=== PATIENT | female | born 1995 | race Two or more races ===

== ENCOUNTER 2024-04-06 10:06 | Observation (INO) | payer OTHER ==
[2024-04-06] MEDS ORDERED: ASPI1TAB20 PO (11:42)
[2024-04-06] MEDS ORDERED: PREN-96 PO (11:42)
== END 2024-04-06 11:58 | disposition home or self-care (01) ==
LOC: LDRP 10:06
PROVIDERS: ADMIT Obstetrics & Gynecology; ATTEND Obstetrics & Gynecology
DX: O24.419 Gestational diabetes mellitus in pregnancy, unspecified control (principal); Z3A.31 31 weeks gestation of pregnancy; Z87.891 Personal history of nicotine dependence
CPT/HCPCS: 59025; 76818; 81002; 82948; 82962; 94760; G0378

== ENCOUNTER 2024-04-14 11:07 | Observation (INO) | payer OTHER ==
[~2024-04-14 11:07] MED LIST: ASPI1TAB20 PO; PREN-96 PO
== END 2024-04-14 12:47 | disposition home or self-care (01) ==
LOC: LDRP 11:07
PROVIDERS: ADMIT Obstetrics & Gynecology; ATTEND Obstetrics & Gynecology
DX: O24.419 Gestational diabetes mellitus in pregnancy, unspecified control (principal); Z3A.33 33 weeks gestation of pregnancy; Z79.899 Other long term (current) drug therapy; Z98.890 Other specified postprocedural states
CPT/HCPCS: 59025; 76818; 81002; 82948; 82962; 94760; G0378

== ENCOUNTER 2024-04-21 11:00 | Observation (INO) | payer OTHER ==
[2024-04-21] MEDS ORDERED: METF-370 PO (12:25)
[2024-04-21] MEDS ORDERED: GLYB2.5T8 PO (12:25)
--- NOTE | 2024-04-21 13:39 | DVHDS2 ---
Physician Discharge Progress N Final Diagnosis: gdm Operations or Procedures: Operations or Procedures nst,sono Condition on Discharge: Good Disposition: Home Discharge Instructions: Diet: Consistent carbohydrate Activity: Light activity Medications: na Follow Up Care: Specialist: 3d Discharge Statement: "Patient was advised to return to the ER or call 911 if any headaches, dizziness, shortness of breath, chest pain, abdominal pain, bleeding, fevers, or worsening of medical condition. Patient was counseled about treatment plan, medications, possible side effects, patientverbalized understanding. All questions were answered to the best of my ability. This discharge took greater then 30 minutes in planning, reviewing documentation, counseling the patient, and discussing with other team members." JENS DOVE DO Apr 21, 2024 13:39
--- NOTE | 2024-04-21 13:53 | DVH ---
BIOPHYSICAL PROFILE HISTORY: GDMA1 TECHNIQUE: Multiple transabdominal real-time grayscale sonographic images through the gravid uterus of the fetus with duplex Doppler color flow and M-mode spectral analysis FINDINGS: BIOPHYSICAL PROFILE: breathing score: 2 movement score: 2 tone score: 2 Quantitative ALBERT score: 2 (ALBERT: 11 Cm.) Total score: 8/8 The cervix is not seen Single live fetus in cephalic presentation. heart rate 132 beats per minute. Anterior placenta without previa or abruption Biophysical profile score 8/8 corresponding to an RAYNA of 06/02 IMPRESSION: Biophysical profile score: 8/8
== END 2024-04-21 13:49 | disposition home or self-care (01) ==
LOC: LDRP 11:00
PROVIDERS: ADMIT Obstetrics & Gynecology; ATTEND Obstetrics & Gynecology
DX: O24.419 Gestational diabetes mellitus in pregnancy, unspecified control (principal); Z3A.34 34 weeks gestation of pregnancy; Z79.899 Other long term (current) drug therapy; Z98.890 Other specified postprocedural states
CPT/HCPCS: 59025; 76818; 81002; 82948; 82962; 94760; G0378

== ENCOUNTER 2024-04-24 10:37 | Observation (INO) | payer OTHER ==
[~2024-04-24 10:37] MED LIST changes: +GLYB2.5T8 PO; +METF-370 PO
--- NOTE | 2024-04-24 11:30 | DVH ---
BIOPHYSICAL PROFILE HISTORY: GDMA2 Comparison Study: 04/21/2024 TECHNIQUE: Multiple real-time grayscale sonographic images through the gravid uterus of the fetus wi th duplex Doppler color flow and M-mode spectral analysis FINDINGS: BIOPHYSICAL PROFILE: breathing score: 2 movement score: 2 tone score: 2 Quantitative ALBERT score: 2 (ALBERT: 11.7 Cm.) Total score: 8/8 The cervix is not seen Single live fetus in vertex presentation. heart rate 146 beats per minute. Anterior location of placenta without previa or abruption Biophysical profile score 8/8 corresponding to an RAYNA of 06/02/2024 IMPRESSION: 1. Biophysical profile score: 8/8
--- NOTE | 2024-04-24 13:52 | DVHDS2 ---
Physician Discharge Progress N Final Diagnosis: GDM Operations or Procedures: Operations or Procedures NST,SONO Condition on Discharge: Good Disposition: Home Discharge Instructions: Diet: Consistent carbohydrate Activity: No Restrictions, As Tolerated Medications: NA Follow Up Care: Specialist: 2D Discharge Statement: "Patient was advised to return to the ER or call 911 if any headaches, dizziness, shortness of breath, chest pain, abdominal pain, bleeding, fevers, or worsening of medical condition. Patient was counseled about treatment plan, medications, possible side effects, patientverbalized understanding. All questions were answered to the best of my ability. This discharge took greater then 30 minutes in planning, reviewing documentation, counseling the patient, and discussing with other team members." JENS DOVE DO Apr 24, 2024 13:52
== END 2024-04-24 12:15 | disposition home or self-care (01) ==
LOC: LDRP 10:37
PROVIDERS: ADMIT Obstetrics & Gynecology; ATTEND Obstetrics & Gynecology
DX: O24.419 Gestational diabetes mellitus in pregnancy, unspecified control (principal); O76 Abnormality in fetal heart rate and rhythm complicating labor and delivery; Z3A.34 34 weeks gestation of pregnancy; Z79.899 Other long term (current) drug therapy
CPT/HCPCS: 59025; 76818; 81002; 82948; 82962; 94760; G0378

== ENCOUNTER 2024-04-28 11:56 | Observation (INO) | payer OTHER ==
--- NOTE | 2024-04-28 12:39 | DVH ---
BIOPHYSICAL PROFILE HISTORY: GDMA2 TECHNIQUE: Multiple transabdominal real-time grayscale sonographic images through the gravid uterus of the fetus with duplex Doppler color flow and M-mode spectral analysis FINDINGS: BIOPHYSICAL PROFILE: breathing score: 2 movement score: 2 tone score: 2 Quantitative ALBERT score: 2 (ALBERT: 12.1 Cm.) Total score: 8 The cervix not well visualized. Single live fetus in cephalic presentation. heart rate 158 beats per minute. Anterior placenta without previa or abruption IMPRESSION: Biophysical profile score: 8
--- NOTE | 2024-05-04 13:16 | DVHDS2 ---
Physician Discharge Progress N Final Diagnosis: gdm Operations or Procedures: Operations or Procedures nst,sono Condition on Discharge: Good Disposition: Home Discharge Instructions: Diet: Regular Activity: No Restrictions, As Tolerated Follow Up/Referral: Eat small frequent meals. [facility] and 05/05 at 12:00pm for NST/BPP Medications: na Follow Up Care: Specialist: 2d Discharge Statement: "Patient was advised to return to the ER or call 911 if any headaches, dizziness, shortness of breath, chest pain, abdominal pain, bleeding, fevers, or worsening of medical condition. Patient was counseled about treatment plan, medications, possible side effects, patientverbalized understanding. All questions were answered to the best of my ability. This discharge took greater then 30 minutes in planning, reviewing documentation, counseling the patient, and discussing with other team members." JENS DOVE DO May 04, 2024 13:16
== END 2024-04-28 13:38 | disposition home or self-care (01) ==
LOC: UNDOADMOB 11:56 → LDRP 11:56
PROVIDERS: ADMIT Obstetrics & Gynecology; ATTEND Obstetrics & Gynecology
DX: O26.893 Other specified pregnancy related conditions, third trimester (principal); R51.9 Headache, unspecified; O24.419 Gestational diabetes mellitus in pregnancy, unspecified control; Z87.891 Personal history of nicotine dependence
CPT/HCPCS: 59025; 76818; 81002; 82948; 82962; 94760; G0378

== ENCOUNTER 2024-05-01 15:43 | Observation (INO) | payer OTHER ==
--- NOTE | 2024-05-02 18:34 | DVH ---
BIOPHYSICAL PROFILE HISTORY: GDMA2 TECHNIQUE: Multiple transabdominal real-time grayscale sonographic images through the gravid uterus of the fetus with duplex Doppler color flow and M-mode spectral analysis FINDINGS: BIOPHYSICAL PROFILE: breathing score: 2 movement score: 2 tone score: 2 Quantitative ALBERT score: 2 (ALBERT: 10.6 Cm.) Total score: 8/8 The cervix not measured Single live fetus in cephalic presentation. heart rate 141 beats per minute. Grade 2 placenta without previa or abruption, placenta is anterior Biophysical profile score 8/8 corresponding to an RAYNA of 06/02/2024 IMPRESSION: 1. Biophysical profile score: 8/8
--- NOTE | 2024-05-03 05:18 | DVHDS2 ---
Physician Discharge Progress N Final Diagnosis: GDMA2 Operations or Procedures: Operations or Procedures NST/BPP/ALBERT accuchclaribel, all WNL Commentary: Commentary BPP 01/21 NST reactive Condition on Discharge: Stable Disposition: Home Discharge Instructions: Diet: Consistent carbohydrate Activity: No Restrictions, As Tolerated Follow Up/Referral: as scheduled 2x wk/NST BPP Medications: No new meds Follow Up Care: Discharge Statement: "Patient was advised to return to the ER or call 911 if any headaches, dizziness, shortness of breath, chest pain, abdominal pain, bleeding, fevers, or worsening of medical condition. Patient was counseled about treatment plan, medications, possible side effects, patientverbalized understanding. All questions were answered to the best of my ability. This discharge took greater then 30 minutes in planning, reviewing documentation, counseling the patient, and discussing with other team members." CHARLES DOWNING DO May 03, 2024 05:18
== END 2024-05-02 19:27 | disposition home or self-care (01) ==
LOC: LDRP 05-02 18:00
PROVIDERS: ADMIT Obstetrics & Gynecology; ATTEND Obstetrics & Gynecology
DX: O24.419 Gestational diabetes mellitus in pregnancy, unspecified control (principal); Z3A.35 35 weeks gestation of pregnancy; Z87.891 Personal history of nicotine dependence
CPT/HCPCS: 59025; 76818; 81002; 82948; 82962; 94760; G0378

== ENCOUNTER 2024-05-05 10:19 | Observation (INO) | payer OTHER ==
--- NOTE | 2024-05-05 12:48 | DVH ---
BIOPHYSICAL PROFILE HISTORY: gdma2 TECHNIQUE: Multiple transabdominal real-time grayscale sonographic images through the gravid uterus of the fetus with duplex Doppler color flow and M-mode spectral analysis FINDINGS: BIOPHYSICAL PROFILE: breathing score: 2 movement score: 2 tone score: 2 Quantitative ALBERT score: 2 (ALBERT: 10.5 Cm.) Total score: 8 The cervix not well visualized. Single live fetus in cephalic presentation. heart rate 144 beats per minute. Anterior placenta without previa or abruption IMPRESSION: Biophysical profile score: 8
--- NOTE | 2024-05-05 13:12 | DVHDS2 ---
Physician Discharge Progress N Final Diagnosis: gdm Operations or Procedures: Operations or Procedures nst,sono Condition on Discharge: Good Disposition: Home Discharge Instructions: Diet: Consistent carbohydrate Activity: No Restrictions, As Tolerated Medications: na Follow Up Care: Specialist: 3d Discharge Statement: "Patient was advised to return to the ER or call 911 if any headaches, dizziness, shortness of breath, chest pain, abdominal pain, bleeding, fevers, or worsening of medical condition. Patient was counseled about treatment plan, medications, possible side effects, patientverbalized understanding. All questions were answered to the best of my ability. This discharge took greater then 30 minutes in planning, reviewing documentation, counseling the patient, and discussing with other team members." JENS DOVE DO May 05, 2024 13:12
== END 2024-05-05 13:33 | disposition home or self-care (01) ==
LOC: LDRP 11:46 → UNDOADMOB 11:46 → LDRP 12:05 → UNDODISOB 13:33
PROVIDERS: ADMIT Obstetrics & Gynecology; ATTEND Obstetrics & Gynecology
DX: O24.419 Gestational diabetes mellitus in pregnancy, unspecified control (principal); Z3A.36 36 weeks gestation of pregnancy; Z87.891 Personal history of nicotine dependence
CPT/HCPCS: 59025; 76818; 81002; 82948; 82962; 94760; G0378

== ENCOUNTER 2024-05-08 15:53 | Observation (INO) | payer OTHER ==
--- NOTE | 2024-05-08 16:44 | DVH ---
BIOPHYSICAL PROFILE HISTORY: gdma2 TECHNIQUE: Multiple transabdominal real-time grayscale sonographic images through the gravid uterus of the fetus with duplex Doppler color flow and M-mode spectral analysis FINDINGS: BIOPHYSICAL PROFILE: breathing score: 2 movement score: 2 tone score: 2 Quantitative ALBERT score: 2 (ALBERT: 9.7 Cm.) Total score: 8/8 The cervix is not seen. Single live fetus in cephalic presentation. heart rate 160 beats per minute. Anterior placenta without previa or abruption Biophysical profile score 8/8 corresponding to an RAYNA of 06/02/24 IMPRESSION: Biophysical profile score: 8/8
--- NOTE | 2024-05-09 10:09 | DVHDS2 ---
Obstetrics Discharge Summary Obstetrics Discharge Summary Date of Admission: May 08, 2024 Date of Discharge: May 08, 2024 Reason For Admission: Observational/Evaluation ( Status), Others (GDM A2 NST BPP) Procedures: NST, Ultrasound Discharge Diagnosis: Others (Reassuring heart tones) Discharge Information: Activity (Unrestricted), Diet (GDM diet), Medications (Continue home meds), Instructions (Kick counts labor precautions), Discharge to (Home), Discarge date (04/07/2024) SRAVANI LANDEROS DO May 09, 2024 10:09
== END 2024-05-08 17:12 | disposition home or self-care (01) ==
LOC: LDRP 15:53
PROVIDERS: ADMIT Obstetrics & Gynecology; ATTEND Obstetrics & Gynecology
DX: O24.419 Gestational diabetes mellitus in pregnancy, unspecified control (principal); Z3A.36 36 weeks gestation of pregnancy; Z87.891 Personal history of nicotine dependence; Z79.899 Other long term (current) drug therapy
CPT/HCPCS: 59025; 76818; 81002; 82948; 82962; 94760; G0378

== ENCOUNTER 2024-05-11 13:18 | Observation (INO) | payer OTHER ==
--- NOTE | 2024-05-11 16:23 | DVH ---
BIOPHYSICAL PROFILE HISTORY: GDMA2/NUCHAL TECHNIQUE: Multiple transabdominal real-time grayscale sonographic images through the gravid uterus of the fetus with duplex Doppler color flow and M-mode spectral analysis FINDINGS: BIOPHYSICAL PROFILE: breathing score: 2 movement score: 2 tone score: 2 Quantitative ALBERT score: 2 (ALBERT: 12.0 Cm.) Total score: 8/8 Single live fetus in cephalic presentation. heart rate 160 beats per minute. Anterior placenta without previa or abruption IMPRESSION: 1. Biophysical profile score: 8/8 HS:Y
--- NOTE | 2024-05-11 22:06 | DVHDS2 ---
Physician Discharge Progress N Final Diagnosis: testing for GDM, A2 Operations or Procedures: Operations or Procedures 28yo IUP@36.6wks VSS UA wnl NST reactive (verified by 2 RNs) BPP wnl FKC/PTL precautions reviewed. Condition on Discharge: Stable Disposition: Home Discharge Instructions: Diet: Consistent carbohydrate Activity: No Restrictions, As Tolerated Medications: see med list Follow Up Care: Specialist: f/u twice weekly Discharge Statement: "Patient was advised to return to the ER or call 911 if any headaches, dizziness, shortness of breath, chest pain, abdominal pain, bleeding, fevers, or worsening of medical condition. Patient was counseled about treatment plan, medications, possible side effects, patientverbalized understanding. All questions were answered to the best of my ability. This discharge took greater then 30 minutes in planning, reviewing documentation, counseling the patient, and discussing with other team members." SOLOMON ROJAS CNM May 11, 2024 22:06
== END 2024-05-11 17:26 | disposition home or self-care (01) ==
LOC: LDRP 15:30 → UNDOADMOB 15:30 → LDRP 15:39 → UNDODISOB 17:26
PROVIDERS: ADMIT Obstetrics & Gynecology; ATTEND Obstetrics & Gynecology
CPT/HCPCS: 59025 ×2; 76818 ×2; 81002 ×2; 82948 ×2; 82962 ×2; 94760 ×2; G0378

== ENCOUNTER 2024-05-15 04:34 | Observation (INO) | payer OTHER ==
--- NOTE | 2024-05-15 12:37 | DVH ---
CLINICAL HISTORY: Gestational diabetes. COMPARISON: US BIOPHYSICAL PROFILE on DOS: 05/11/24, US BIOPHYSICAL PROFILE on DOS: 05/08/24, US BIOP HYSICAL PROFILE on DOS: 05/05/24 TECHNIQUE: biophysical profile was performed. Transabdominal sonographic images of the fetus we re obtained. FINDINGS: The fetus is in cephalic position. heart rate measures 156 BPM. Amniotic fluid index measures 12.4 cm. The placenta is anterior in position. BPP profile is an overall score of 8/8, with 2/2 points for breathing, with at least one episode of breathing over a 30 second duration during a 30 minute observation, 2/2 points for m ovements, with 3 or more discrete body or limb movements, 2/2 points for tone, with one or more episodes of extremity extension with return to flexion, or opening and closing of hand, and 2/ 2 points for amniotic fluid, with at least 1 pocket of amniotic fluid that measures 2 cm in 2 perpend icular planes. IMPRESSION: BPP score of 8/8.
--- NOTE | 2024-05-15 19:02 | DVHDS2 ---
Physician Discharge Progress N Final Diagnosis: gdm Operations or Procedures: Operations or Procedures nst,sono Condition on Discharge: Good Disposition: Home Discharge Instructions: Diet: Consistent carbohydrate Activity: No Restrictions, As Tolerated Medications: na Follow Up Care: Specialist: 2d Discharge Statement: "Patient was advised to return to the ER or call 911 if any headaches, dizziness, shortness of breath, chest pain, abdominal pain, bleeding, fevers, or worsening of medical condition. Patient was counseled about treatment plan, medications, possible side effects, patientverbalized understanding. All questions were answered to the best of my ability. This discharge took greater then 30 minutes in planning, reviewing documentation, counseling the patient, and discussing with other team members." JENS DOVE DO May 15, 2024 19:02
== END 2024-05-15 12:25 | disposition home or self-care (01) ==
LOC: LDRP 10:55
PROVIDERS: ADMIT Obstetrics & Gynecology; ATTEND Obstetrics & Gynecology
DX: O24.419 Gestational diabetes mellitus in pregnancy, unspecified control (principal); Z3A.37 37 weeks gestation of pregnancy; Z98.890 Other specified postprocedural states; Z79.899 Other long term (current) drug therapy
CPT/HCPCS: 59025; 76818; 81002; 82948; 82962; 94760; G0378

== ENCOUNTER 2024-05-18 12:55 | Observation (INO) | payer OTHER ==
--- NOTE | 2024-05-18 14:06 | DVH ---
BIOPHYSICAL PROFILE HISTORY: GDMA2 Comparison: 05/15/2024 TECHNIQUE: Multiple transabdominal real-time grayscale sonographic images through the gravid uterus of the fetus with duplex Doppler color flow and M-mode spectral analysis FINDINGS: BIOPHYSICAL PROFILE: breathing score: 2 movement score: 2 tone score: 2 Quantitative ALBERT score: 2 (ALBERT: 14.8 Cm.) Total score: 8 The cervix is not well-visualized Single live fetus in cephalic presentation. heart rate 147 beats per minute. Anterior placenta . IMPRESSION: Biophysical profile score: 8
--- NOTE | 2024-05-18 14:36 | DVHDS2 ---
Physician Discharge Progress N Final Diagnosis: gdm Operations or Procedures: Operations or Procedures nst,sono Condition on Discharge: Good Disposition: Home Discharge Instructions: Diet: Consistent carbohydrate Activity: No Restrictions, As Tolerated Follow Up/Referral: Follow up twice weekly as scheduled Medications: na Follow Up Care: Specialist: 4d Discharge Statement: "Patient was advised to return to the ER or call 911 if any headaches, dizziness, shortness of breath, chest pain, abdominal pain, bleeding, fevers, or worsening of medical condition. Patient was counseled about treatment plan, medications, possible side effects, patientverbalized understanding. All questions were answered to the best of my ability. This discharge took greater then 30 minutes in planning, reviewing documentation, counseling the patient, and discussing with other team members." JENS DOVE DO May 18, 2024 14:36
== END 2024-05-18 14:37 | disposition home or self-care (01) ==
LOC: LDRP 12:55
PROVIDERS: ADMIT Obstetrics & Gynecology; ATTEND Obstetrics & Gynecology
DX: O24.419 Gestational diabetes mellitus in pregnancy, unspecified control (principal); Z3A.37 37 weeks gestation of pregnancy; Z98.890 Other specified postprocedural states; Z79.899 Other long term (current) drug therapy
CPT/HCPCS: 59025; 76818; 81002; 82948; 82962; G0378

== ENCOUNTER 2024-05-22 10:55 | Observation (INO) | payer OTHER ==
--- NOTE | 2024-05-22 12:11 | DVH ---
BIOPHYSICAL PROFILE HISTORY: GDMA2 Comparison Study: May 18, 2024 TECHNIQUE: Multiple real-time grayscale sonographic images through the gravid uterus of the fetus wi th duplex Doppler color flow and M-mode spectral analysis FINDINGS: BIOPHYSICAL PROFILE: breathing score: 2 movement score: 2 tone score: 2 Quantitative ALBERT score: 2 (ALBERT: 10.2 Cm.) Total score: 8 The cervix closed Single live fetus in cephalic presentation. heart rate 171 beats per minute. No placenta without previa or abruption Biophysical profile score 8 IMPRESSION: 1. Biophysical profile score: 8 2. No significant interval change since prior ultrasound.
== END 2024-05-22 12:25 | disposition home or self-care (01) ==
LOC: LDRP 10:55
PROVIDERS: ADMIT Obstetrics & Gynecology; ATTEND Obstetrics & Gynecology
DX: O24.419 Gestational diabetes mellitus in pregnancy, unspecified control (principal); Z3A.38 38 weeks gestation of pregnancy; Z79.899 Other long term (current) drug therapy; Z98.890 Other specified postprocedural states
CPT/HCPCS: 59025; 76818; 81002; 82962; 94760; G0378

== ENCOUNTER 2024-05-23 05:49 | Observation (INO) | payer OTHER ==
[~2024-05-23] VITALS: Ht 170.2 cm; Wt 120.2 kg
[2024-05-23] MEDS ORDERED: AMPICILLIN SOD 1 GM VL ONE (20:58)
[2024-05-23] MEDS ORDERED: ACETAMINOPHEN IV 1000 MG/100ML (10MG/ML) IV PRN ×2 (21:00→21:30)
[2024-05-23 21:18] LABS: Basophils # (auto) 0 10 ^3/uL (0-0.2); Basophils % (auto) 0.3 % (0.0-2.0); Eosinophils # (auto) 0 10 ^3/uL (0-0.8); Hematocrit 36.6 % (36.0-46.0); Hemoglobin 12.2 g/dL (12.2-16.2); Lymphocytes # (auto) 0.3 10 ^3/uL (0.4-5.4); Lymphocytes % (auto) 2.4 % (10.0-50.0); Mean Corpuscular Hemoglobin 24.8 pg (28.0-32.0); Mean Corpuscular Hgb Conc. 33.3 g/dL (32.0-36.0); Mean Corpuscular Volume 74.5 fL (80.0-100.0); Monocytes # (auto) 0.6 10 ^3/uL (0-1.3); Monocytes % (auto) 4.7 % (0.0-12.0); Neutrophils # (auto) 12.2 10 ^3/uL (1.6-8.6); Neutrophils % (auto) 92.6 % (37.0-80.0); Nucleated Red Blood Cells % 0.1 %; Platelet Count (auto) 157 10^3/uL (140-450); Red Blood Cells 4.92 10^6/uL (4.0-5.20); Red Cell Distribution Width 15.5 % (11.8-14.3); White Blood Cell 13.1 10^3/uL (4.4-10.8)
[2024-05-23] MEDS: LACTATED RINGER'S 1,000 ML IV ONE (21:23)
[2024-05-23 21:26] LABS: Alanine Aminotransferase 13 U/L (7-40); Albumin 4.3 g/dL (3.2-4.8); Anion Gap 14 (5-15); BUN/Creatinine Ratio 9.4 (10.0-20.0); Bilirubin, Total 0.4 mg/dL (0.2-1.0); Calcium 9.4 mg/dL (8.7-10.4); Chloride 105 mmol/L (98-107); Glucose 105 mg/dL (74-106); Potassium 3.9 mmol/L (3.5-5.1); Sodium 136 mmol/L (136-145); Total Protein 7.1 g/dL (5.7-8.2)
[2024-05-23 21:30] LABS: Alkaline Phosphatase 157 U/L (46-116); Aspartate Aminotransferase 44 U/L (13-40); Blood Urea Nitrogen 6 mg/dL (9-23); Carbon Dioxide 17 mmol/L (20-31)
[2024-05-23 21:42] LABS: COVID19 ANTIGEN SOFIA FIA NEGATIVE (NEGATIVE); Rapid Influenza A Negative (Negative); Rapid Influenza B Negative (Negative)
[2024-05-23] MEDS ORDERED: GENTAMICIN SULFATE 4 ML ONE (21:54)
[2024-05-23] MEDS: AMPICILLIN SOD 2GM INJ 2 GM in SODIUM CHL 0.9% 100 ML IV ONE (22:04)
[2024-05-23] MEDS: ACETAMINOPHEN IV 1000 MG/100ML (10MG/ML) IV ONE (22:15)
[2024-05-23 22:22] LABS: Hepatitis C Antibody Negative (Negative)
[2024-05-23 22:29] LABS: Hepatitis B Surface Antigen Negative (Negative)
[2024-05-23] MEDS: GENTAMICIN SULFATE 120 MG in D5W 5% 100 ML IV ONE (22:59)
[2024-05-24] MEDS ORDERED: ONDANSETRON HCL 4 MG/2 ML VIAL IV PRN (00:45)
--- NOTE | 2024-05-24 01:06 | DVHHP2 ---
OB CC & HPI Date Date of Admission: May 23, 2024 Patient Identification: : 3 Para: 1 EDC: Jun 02, 2024 EGA: 38w 4d Chief Complaints: Reason for admission: other (Fever, nausea and Vomiting, KOCH, generalized body aches, cough; symptoms started at 03:00 per pt. also feels sick) Admission Nurse Assessment Rev: Yes History of Present Complaints [facility]. However, she reports not feeling well, states she has cold, nausea nad vomiting. other people in household not feeling well either - have similar symptoms Past Medical History Cardiac: No pertinent Hx Pulmonary: No pertinent Hx Central Nervous System: No pertinent Hx GI: No pertinent Hx Hemotology/Oncology: No pertinent Hx Hepatobiliary: No pertinent Hx Psychiatric: No pertinent Hx Musculoskeletal: No pertinent Hx Rheumotologic: No pertinent Hx Infectious Disease: No peritnent Hx ENT: No pertinent Hx Renal/: No pertinent Hx Endocrine: Other (GDMA1 with first ) Dermatology: No pertinent Hx Past Surgical History: Tonsillectomy OB History OB History Care: Good Care Ultrasounds: Normal mid trimester US Obstetrical Complications: Gestational Diabetes Medical Complications: Other (Current symptoms r/o Covid & Influenza) Allergies: Coded Allergies: NO KNOWN ALLERGIES (Unverified , 04/06/24) Home Meds Reported Medications Glyburide (Glyburide) 2.5 Mg Tab, 2.5 MG PO for 30 Days, MG 04/21/24 Metformin Hydrochloride (Metformin Hcl) 500 Mg Tab, 500 MG PO DAILY for 30 Days, MG 04/21/24 Aspirin (Aspir-81) 81 Mg Tab, 1 TAB PO DAILY, #30 TAB 5 Refills 04/06/24 Vit W/ Ferrous Fumara ( One Daily) Daily Tab, TAB PO DAILY, #90 TAB 3 Refills 04/06/24 Current Medications Current Medications Medications (Trade) Dose Ordered Sig/Belle Route PRN Reason Start Time Stop Time Status Last Admin Acetaminophen (Ofirmev) 1,000 mg [id number] PRN IV PAIN SCALE 1-3 OR TEMP>100.4 05/23/24 21:00 05/23/24 21:01 Cancel Acetaminophen (Ofirmev) 1,000 mg [id number] PRN IV PAIN SCALE 1-3 OR TEMP>100.4 05/23/24 21:30 05/23/24 21:31 Cancel Lactated Ringer's 1,000 ml @ 125 mls/hr Q8H IV 05/23/24 21:45 Family & Social History Family/Social History Blood Type: B+ Rubella: immune RPR/VDRL: Positive (FTA neg) GBS Status: Unknown HBsAG: Unknown Review of Systems Constitutional: Chills, Fever, Malaise Ears, Nose, & Throat: No symptom reported Eyes: No symptom reported Pulmonary/Respiratory: Cough Gastrointestinal: Nausea, Vomiting, Diarrhea Genitourinary: No symptom reported Musculoskeletal: Muscle pain Skin: No symptom reported Psychiatric: Headache Endocrine: No symptom reported Hemotologic/Lymphatic: No symptom reported OB Admission Exam Physical Exam HEENT: Eyes non-injected Lungs: Clear Abdomen: Gravid (non-tender) Extremities: Normal Reflexes: Normal Cervical Dilatation: None Effacement: 0% Station: Ballotable Membranes: Intact Accelerations: No Accelerations Decelerations: No Decelerations Group Home Variability: Minimal (3-5) Contractions on Admission: None Date/Time Contractions Began: No contractions OB Plan Plan Admitting Diagnosis: IUP at 38w 5d GDMA2 Fever r/o Viral infection with Covid or Influenza Categoty 2FHR Tracing Obesity Plan: Other (Admit for observation, lab tests and symptom, management , hydration. Management per Dr Mathews's orders and recommendations) Other Plan: [facility] to [facility] for [facility] Hold off on IOL Labs IV hydration Cooling measures Analgesics/antipyretic Antiemetics US for ALBERT and presentation CLAU TATE CNM May 24, 2024 01:06
[2024-05-24 01:59] LABS: Partial Thromboplastin Time 29.7 SEC (24.5-34.5); Prothrombin Time 10.6 sec (9.3-11.8)
[2024-05-24] MEDS ORDERED: AMPICILLIN SOD 1 GM VL ONE (02:23)
[2024-05-24] MEDS: AMPICILLIN INJ 1 GM in SODIUM CHL 0.9% 100 ML IV ONE (02:29)
[2024-05-24 03:09] LABS: Urine Bacteria FEW /hpf (None Seen); Urine Blood Negative /uL (Negative); Urine Clarity Clear (Clear); Urine Color Yellow (Yellow); Urine Mucus FEW (None Seen); Urine Protein, UAD TRACE (Negative); Urine Specific Gravity 1.019 (1.001-1.035); Urine Squamous Epithelial Cell FEW /hpf (<5); Urine Urobilinogen Normal (Negative); Urine WBC 7 /hpf (0 - 5); Urine pH 5.5 (5.0-9.0)
[2024-05-24 03:18] LABS: Amphetamine Screen, Urine Neg (NEGATIVE); Barbiturate Scree,Urine Neg (NEGATIVE); Benzodiazephine Screen, Urine Neg (NEGATIVE); Cocaine Screen, Urine Neg (NEGATIVE); Opiate Scree,Urine Neg (NEGATIVE)
[2024-05-24 03:19] LABS: Cannabinoid Screen, Urine Neg (NEGATIVE); Phencyclidine Screen, Urine Neg (NEGATIVE)
[2024-05-24] MEDS: LACTATED RINGER'S 1,000 ML IV SCH (05:38)
[2024-05-24] MEDS: ceFAZolin 1GM/50ML 50 ML IV SCH (05:45)
[2024-05-24] MEDS: ACETAMINOPHEN 325 MG TAB PO PRN (05:58)
[2024-05-24 07:00] VITALS: TEMP 98.5
--- NOTE | 2024-05-24 07:22 | DVH ---
CLINICAL HISTORY: category 2 tracing COMPARISON: US BIOPHYSICAL PROFILE on DOS: 05/22/24, US BIOPHYSICAL PROFILE on DOS: 05/18/24, US BIOPHY SICAL PROFILE on DOS: 05/15/24 TECHNIQUE: biophysical profile was performed. Transabdominal sonographic images of the fetus we re obtained. FINDINGS: The fetus is in cephalic position. heart rate measures 167 BPM. Amniotic fluid index measures 10 cm. The placenta is anterior in position. BPP profile is an overall score of 8/8, with 2/2 points for breathing, with at least one episode of breathing over a 30 second duration during a 30 minute observation, 2/2 points for m ovements, with 3 or more discrete body or limb movements, 2/2 points for tone, with one or more episodes of extremity extension with return to flexion, or opening and closing of hand, and 2/ 2 points for amniotic fluid, with at least 1 pocket of amniotic fluid that measures 2 cm in 2 perpend icular planes. IMPRESSION: BPP score of 8/8.
--- NOTE | 2024-05-24 08:13 | DVH ---
CLINICAL INFORMATION: 28 years old, Female; Chest pain/Cough. TECHNIQUE: Single AP portable chest radiograph was obtained. COMPARISON: None FINDINGS: Lungs: Mild perihilar interstitial opacities. Cardiac: Cardiac silhouette is mildly prominent, may be partly due to portable AP technique. Pulmonary vasculature: Prominence of the pulmonary vasculature. Mediastinum/bill: Unremarkable. Bones: No acute osseous abnormality identified. Other: No other significant findings. IMPRESSION: Prominence of the pulmonary vasculature and mild perihilar interstitial opacities, may be seen with p ulmonary vascular congestion in the appropriate clinical setting. Correlate with clinical findings.
--- NOTE | 2024-05-24 09:02 | DVHDS2 ---
Discharge Summary Date of Admission May 23, 2024 at 19:48 Date of Discharge: May 24, 2024 Admitting Diagnosis Term IUP, not in labor Acute Viral syndrome, bacterial bronchitis GDMA2 Labs/Diagnostic Data: Laboratory Results Test 05/24/24 04:25 05/24/24 01:30 05/24/24 01:25 05/23/24 21:04 POC Glucose 103 mg/dl (70-106) Urine Color Yellow (Yellow) Urine Clarity Clear (Clear) Urine pH 5.5 (5.0-9.0) Urine Specific [place] 1.019 (1.001-1.035) Urine Protein Trace (Negative) Urine Ketones 2+ (Negative) Urine Blood Negative /uL (Negative) Urine Nitrite Negative (Negative) Urine Bilirubin Negative (Negative) Urine Urobilinogen Normal mg/dL (Negative) Urine Leukocyte Esterase Trace /uL (Negative) Urine RBC 1 /hpf (0 - 4) Urine WBC 7 /hpf (0 - 5) Urine Squamous Epithelial Cells Few /hpf (<5) Urine Bacteria Few /hpf (None Seen) Urine Mucus Few (None Seen) Urine Glucose Normal mg/dL (Normal) Urine Opiates Screen Neg (NEGATIVE) Urine Fentanyl Screen Neg (NEGATIVE) Urine Barbiturates Screen Neg (NEGATIVE) Urine Phencyclidine Screen Neg (NEGATIVE) Urine Amphetamines Screen Neg (NEGATIVE) Urine Benzodiazepines Screen Neg (NEGATIVE) Urine Cocaine Screen Neg (NEGATIVE) Urine Cannabinoids Screen Neg (NEGATIVE) Prothrombin Time 10.6 sec (9.3-11.8) Prothrombin Time INR 1.00 (0.9-1.15) Activated Partial Thromboplast Time 29.7 SEC (24.5-34.5) Uric Acid 7.5 mg/dL (3.1-7.8) Influenza Type A Antigen Negative (Negative) Influenza Type B Antigen Negative (Negative) SARS-CoV-2 Antigen (Rapid) Negative (NEGATIVE) Test 05/23/24 20:33 White Blood Count 13.1 10^3/uL (4.4-10.8) Red Blood Count 4.92 10^6/uL (4.0-5.20) Hemoglobin 12.2 g/dL (12.2-16.2) Hematocrit 36.6 % (36.0-46.0) Mean Corpuscular Volume 74.5 fL (80.0-100.0) Mean Corpuscular Hemoglobin 24.8 pg (28.0-32.0) Mean Corpuscular Hemoglobin Concent 33.3 g/dL (32.0-36.0) Red Cell Distribution Width 15.5 % (11.8-14.3) Platelet Count 157 10^3/uL (140-450) Mean Platelet Volume 9.4 fL (6.9-10.8) Neutrophils (%) (Auto) 92.6 % (37.0-80.0) Lymphocytes (%) (Auto) 2.4 % (10.0-50.0) Monocytes (%) (Auto) 4.7 % (0.0-12.0) Eosinophils (%) (Auto) 0.0 % (0.0-7.0) Basophils (%) (Auto) 0.3 % (0.0-2.0) Neutrophils # (Auto) 12.2 10 ^3/uL (1.6-8.6) Lymphocytes # (Auto) 0.3 10 ^3/uL (0.4-5.4) Monocytes # (Auto) 0.6 10 ^3/uL (0-1.3) Eosinophils # (Auto) 0 10 ^3/uL (0-0.8) Basophils # (Auto) 0 10 ^3/uL (0-0.2) Nucleated Red Blood Cells 0.1 % Sodium Level 136 mmol/L (136-145) Potassium Level 3.9 mmol/L (3.5-5.1) Chloride Level 105 mmol/L (98-107) Carbon Dioxide Level 17 mmol/L (20-31) Anion Gap 14 (5-15) Blood Urea Nitrogen 6 mg/dL (9-23) Creatinine 0.64 mg/dL (0.550-1.02) Glomerular Filtration Rate Calc 124 mL/min (>90) BUN/Creatinine Ratio 9.4 (10.0-20.0) Serum Glucose 105 mg/dL (74-106) Hemoglobin A1c 6.0 % A1C (<5.7) Lactic Acid Level 1.7 mmol/L (0.4-2.0) Calcium Level 9.4 mg/dL (8.7-10.4) Total Bilirubin 0.4 mg/dL (0.2-1.0) Aspartate Amino Transferase (AST) 44 U/L (13-40) Alanine Aminotransferase (ALT) 13 U/L (7-40) Alkaline Phosphatase 157 U/L (46-116) Total Protein 7.1 g/dL (5.7-8.2) Albumin 4.3 g/dL (3.2-4.8) Hepatitis B Surface Antigen Negative (Negative) Hepatitis C Antibody Negative (Negative) Other Laboratory Tests 05/23/24 20:33 Brief Hx & Hospital Course: Patient presented with acute non productive cough, nasal congestion, fever, malaise, N/V, no diarrhea, no abdominal pain + Sick contacts also at home. Received IV fluids and IV antibiotics. Improved with hydration and remained afebrile after Tylenol given. FHR initially tachycardic, but resolved after IV hydration and cessation of maternal fever BPP and NST reassuring. CXR mild interstitial congestion, no acute infiltrates or cardiomegaly Labs WNL except WBC slightly elevated. Patient discharged in stable condition, improved. Condition at Discharge: Stable Final Diagnosis/Problems List Acute viral illness Dehydration Acute bronchitis Discharge Disposition: Home Discharge Instruct/Medications Diet: Consistent carbohydrate Activity: Light activity Follow Up/Referral: F/U for NST/BPP and possilble labor induction in 2-3 days Medications: Azithromycin Z patience x 5 days Discharge Statement: "Patient was advised to return to the ER or call 911 if any headaches, dizziness, shortness of breath, chest pain, abdominal pain, bleeding, fevers, or worsening of medical condition. Patient was counseled about treatment plan, medications, possible side effects, patientverbalized understanding. All questions were answered to the best of my ability. This discharge took greater then 30 minutes in planning, reviewing documentation, counseling the patient, and discussing with other team members." ASSESSMENT ASSESSMENT Assessment CHARLES DOWNING DO May 24, 2024 09:02
--- NOTE | 2024-05-24 09:28 | DVHPN2 ---
CNM Labor Progress Note Date and Time Seen Date Seen: May 24, 2024 Time Seen: 02:00 Subjective Patient reports: Feels better (Not on EFM at this time. Reports she feels much better with IV hydration, medications and cooling measures. Feeling FM, no contraction. No nausea atthis time.) Membranes Membranes: Intact Vaginal Exam Vag Exam Deferred: Yes Medications Medications - Pitocin: No Medication - Other Antibiotics, antipyretics. Also antiemetics PRN Lab Results Lab Results Vital Signs Date Time Temp Pulse Resp B/P (MAP) Pulse Ox O2 Delivery O2 Flow Rate FiO2 05/24/24 07:00 98.5 Current Medications Medications (Trade) Dose Ordered Sig/Belle Start Time Stop Time Status Last Admin Dose Admin Lactated Ringer's 1,000 ml @ 1,000 mls/hr Q1H ONCE 05/23/24 20:15 05/23/24 21:14 DC 05/23/24 21:23 1,000 MLS/HR Gentamicin Sulfate 120 mg/ Dextrose 103 ml @ 100 mls/hr ONCE ONCE 05/23/24 21:00 05/23/24 22:08 DC 05/23/24 22:59 100 MLS/HR Ampicillin Sodium 2 gm/Sodium Chloride 100 ml @ 100 mls/hr ONCE ONCE 05/23/24 21:00 05/23/24 21:59 DC 05/23/24 22:04 100 MLS/HR Lactated Ringer's 1,000 ml @ 125 mls/hr Q8H 05/23/24 21:45 05/24/24 05:38 125 MLS/HR Acetaminophen (Ofirmev) 1,000 mg ONCE ONCE 05/23/24 22:00 05/23/24 22:08 DC 05/23/24 22:15 1,000 MG Ampicillin Sodium 1 gm/Sodium Chloride 100 ml @ 200 mls/hr ONCE ONCE 05/24/24 02:04 05/24/24 02:33 DC 05/24/24 02:29 200 MLS/HR Cefazolin Sodium 50 ml @ 100 mls/hr Q8HR 05/24/24 06:04 05/24/24 05:45 100 MLS/HR Ondansetron HCl (Zofran) 4 mg Q4HPRN PRN 05/24/24 00:45 Acetaminophen (Tylenol Tablet) 650 mg Q4HP PRN 05/24/24 05:45 05/24/24 05:58 650 MG Laboratory Tests Test 05/24/24 04:25 05/24/24 01:30 05/24/24 01:25 05/23/24 21:04 Range/Units POC Glucose 103 70-106 mg/dl Urine Color Yellow Yellow Urine Clarity Clear Clear Urine pH 5.5 5.0-9.0 Urine Specific [place] 1.019 1.001-1.035 Urine Protein Trace H Negative Urine Ketones 2+ H Negative Urine Blood Negative Negative /uL Urine Nitrite Negative Negative Urine Bilirubin Negative Negative Urine Urobilinogen Normal Negative mg/dL Urine Leukocyte Esterase Trace Negative /uL Urine RBC 1 0 - 4 /hpf Urine WBC 7 0 - 5 /hpf Urine Squamous Epithelial Cells Few <5 /hpf Urine Bacteria Few H None Seen /hpf Urine Mucus Few None Seen Urine Glucose Normal Normal mg/dL Urine Opiates Screen Neg NEGATIVE Urine Fentanyl Screen Neg NEGATIVE Urine Barbiturates Screen Neg NEGATIVE Urine Phencyclidine Screen Neg NEGATIVE Urine Amphetamines Screen Neg NEGATIVE Urine Benzodiazepines Screen Neg NEGATIVE Urine Cocaine Screen Neg NEGATIVE Urine Cannabinoids Screen Neg NEGATIVE Prothrombin Time 10.6 9.3-11.8 sec Prothrombin Time INR 1.00 0.9-1.15 Activated Partial Thromboplast Time 29.7 24.5-34.5 SEC Uric Acid 7.5 3.1-7.8 mg/dL Influenza Type A Antigen Negative Negative Influenza Type B Antigen Negative Negative SARS-CoV-2 Antigen (Rapid) Negative NEGATIVE Test 05/23/24 20:33 Range/Units White Blood Count 13.1 H 4.4-10.8 10^3/uL Red Blood Count 4.92 4.0-5.20 10^6/uL Hemoglobin 12.2 12.2-16.2 g/dL Hematocrit 36.6 36.0-46.0 % Mean Corpuscular Volume 74.5 L 80.0-100.0 fL Mean Corpuscular Hemoglobin 24.8 L 28.0-32.0 pg Mean Corpuscular Hemoglobin Concent 33.3 32.0-36.0 g/dL Red Cell Distribution Width 15.5 H 11.8-14.3 % Platelet Count 157 140-450 10^3/uL Mean Platelet Volume 9.4 6.9-10.8 fL Neutrophils (%) (Auto) 92.6 H 37.0-80.0 % Lymphocytes (%) (Auto) 2.4 L 10.0-50.0 % Monocytes (%) (Auto) 4.7 0.0-12.0 % Eosinophils (%) (Auto) 0.0 0.0-7.0 % Basophils (%) (Auto) 0.3 0.0-2.0 % Neutrophils # (Auto) 12.2 H 1.6-8.6 10 ^3/uL Lymphocytes # (Auto) 0.3 L 0.4-5.4 10 ^3/uL Monocytes # (Auto) 0.6 0-1.3 10 ^3/uL Eosinophils # (Auto) 0 0-0.8 10 ^3/uL Basophils # (Auto) 0 0-0.2 10 ^3/uL Nucleated Red Blood Cells 0.1 % Sodium Level 136 136-145 mmol/L Potassium Level 3.9 3.5-5.1 mmol/L Chloride Level 105 98-107 mmol/L Carbon Dioxide Level 17 L 20-31 mmol/L Anion Gap 14 5-15 Blood Urea Nitrogen 6 L 9-23 mg/dL Creatinine 0.64 0.550-1.02 mg/dL Glomerular Filtration Rate Calc 124 >90 mL/min BUN/Creatinine Ratio 9.4 L 10.0-20.0 Serum Glucose 105 74-106 mg/dL Hemoglobin A1c 6.0 H <5.7 % A1C Lactic Acid Level 1.7 0.4-2.0 mmol/L Calcium Level 9.4 8.7-10.4 mg/dL Total Bilirubin 0.4 0.2-1.0 mg/dL Aspartate Amino Transferase (AST) 44 H 13-40 U/L Alanine Aminotransferase (ALT) 13 7-40 U/L Alkaline Phosphatase 157 H 46-116 U/L Total Protein 7.1 5.7-8.2 g/dL Albumin 4.3 3.2-4.8 g/dL Rapid Plasma Reagin Pending Hepatitis B Surface Antigen Negative Negative Hepatitis C Antibody Negative Negative Assessment Assessment IUP at 38w 4d GDMA2 Possible Viral infection vs bacterial infection Obesity Plan Plan Plan is to manage as per Dr Mathews's orders Plan discussed with: Patient LEACLAU CNM May 24, 2024 09:28
== END 2024-05-24 09:50 | disposition home or self-care (01) ==
LOC: LDRP 19:48
PROVIDERS: ADMIT Obstetrics & Gynecology; ATTEND Obstetrics & Gynecology
DX: O24.419 Gestational diabetes mellitus in pregnancy, unspecified control (principal); Z20.822 Contact with and (suspected) exposure to COVID-19; O98.513 Other viral diseases complicating pregnancy, third trimester; B34.9 Viral infection, unspecified; O99.513 Diseases of the respiratory system complicating pregnancy, third trimester; J20.8 Acute bronchitis due to other specified organisms; O99.283 Endocrine, nutritional and metabolic diseases complicating pregnancy, third trimester; E86.0 Dehydration; O99.213 Obesity complicating pregnancy, third trimester; E66.9 Obesity, unspecified; Z79.82 Long term (current) use of aspirin; Z79.899 Other long term (current) drug therapy; Z3A.38 38 weeks gestation of pregnancy; Z86.2 Personal history of diseases of the blood and blood-forming organs and certain disorders involving the immune mechanism
CPT/HCPCS: 36415; 59025; 71045; 76818; 80053; 80307; 81001; 81002; 82962; 83036; 83605; 84550; 85025; 85610; 85730; 86592; 86803; 86850; 86900; 86901; 87040; 87340; 87426; 87804; 94760; 96361; 96365; 96366; 96367; 96368; 96375; G0378; J0290; J0690; J1580; J7060; 96360; J0131

== ENCOUNTER 2024-05-27 19:10 | Inpatient (IN) | payer OTHER ==
[~2024-05-27] VITALS: Ht 170.2 cm; Wt 120.2 kg
[2024-05-27] MEDS ORDERED: LIDOCAINE 2%HCL (LOCAL ANESTH.) INJ 20ML MDV IJ PRN (19:45)
[2024-05-27] MEDS ORDERED: NALBUPHINE HCL 10 MG/1ml INJECTION IV PRN (19:45)
[2024-05-27 20:56] LABS: Eosinophils # (auto) 0 10 ^3/uL (0-0.8); Eosinophils % (auto) 0.4 % (0.0-7.0)
[2024-05-27 20:58] LABS: Basophils # (auto) 0 10 ^3/uL (0-0.2); Basophils % (auto) 0.4 % (0.0-2.0); Hematocrit 34.9 % (36.0-46.0); Lymphocytes # (auto) 1.7 10 ^3/uL (0.4-5.4); Lymphocytes % (auto) 19.7 % (10.0-50.0); Mean Corpuscular Hemoglobin 25.6 pg (28.0-32.0); Mean Corpuscular Hgb Conc. 34.5 g/dL (32.0-36.0); Mean Corpuscular Volume 74.3 fL (80.0-100.0); Monocytes # (auto) 0.5 10 ^3/uL (0-1.3); Monocytes % (auto) 5.2 % (0.0-12.0); Neutrophils # (auto) 6.6 10 ^3/uL (1.6-8.6); Neutrophils % (auto) 74.3 % (37.0-80.0); Nucleated Red Blood Cells % 0.1 %; Platelet Count (auto) 169 10^3/uL (140-450); Red Blood Cells 4.69 10^6/uL (4.0-5.20); Red Cell Distribution Width 15.2 % (11.8-14.3); White Blood Cell 8.8 10^3/uL (4.4-10.8)
[2024-05-27 21:11] LABS: INR 0.93 (0.9-1.15); Partial Thromboplastin Time 28.5 SEC (24.5-34.5); Prothrombin Time 9.9 sec (9.3-11.8)
[2024-05-27 21:13] LABS: Alanine Aminotransferase 11 U/L (7-40); Albumin 3.7 g/dL (3.2-4.8); Anion Gap 11 (5-15); Aspartate Aminotransferase 24 U/L (13-40); BUN/Creatinine Ratio 9.5 (10.0-20.0); Bilirubin, Total 0.2 mg/dL (0.2-1.0); Calcium 9.3 mg/dL (8.7-10.4); Carbon Dioxide 21 mmol/L (20-31); Potassium 3.7 mmol/L (3.5-5.1); Sodium 140 mmol/L (136-145); Total Protein 6.4 g/dL (5.7-8.2)
[2024-05-27 21:43] LABS: Alkaline Phosphatase 142 U/L (46-116); Blood Urea Nitrogen 6 mg/dL (9-23); Chloride 108 mmol/L (98-107); Glucose 123 mg/dL (74-106)
--- NOTE | 2024-05-27 22:10 | DVHHP ---
ADMIT DATE: 05/27/2024 CHIEF COMPLAINT: Here for induction of labor secondary to GDM A2. HISTORY OF PRESENT ILLNESS: The patient is a 28-year-old 2, para 1 with EDC 05/30/2024, estimated gestational age of 39+ weeks, admitted for induction of labor secondary to GDM A2. The patient had care by Dr. Christie. She was scheduled for induction. She denies having any rupture of membrane or vaginal bleeding. PAST MEDICAL HISTORY: None. PAST SURGICAL HISTORY: None. SOCIAL HISTORY: None. FAMILY HISTORY: None. OBSTETRIC AND GYNECOLOGIC HISTORY: GDM A2. One vaginal delivery. Blood type B positive. Rubella immune. GBS negative. REVIEW OF SYSTEMS: Consistent with HPI. PHYSICAL EXAMINATION: VITAL SIGNS: Stable, afebrile. HEENT: Within normal limits. CARDIOVASCULAR: Regular rate and rhythm. LUNGS: Clear to auscultation. BREASTS: Symmetrical. No masses. ABDOMEN: Gravid estimated weight of 7-1/2 pounds. PELVIC: 1 cm, 60%, -3. EXTREMITIES: No clubbing, cyanosis or edema. IMPRESSION: * Intrauterine at 39 weeks for induction of labor secondary to gestational diabetes mellitus A2. * Morbid obesity. PLAN: Induction with Cytotec. Informed consent obtained. Risks, complication of induction discussed with the patient. Options reviewed. All questions answered. The patient fully understands. She wishes to proceed with planned induction. DO ALLAN Cohen/JOSR TID: [id number] RECEIPT: [id number]
[2024-05-27 22:24] LABS: Urine Bacteria FEW /hpf (None Seen); Urine Blood Negative /uL (Negative); Urine Clarity Turbid (Clear); Urine Color Yellow (Yellow); Urine Mucus FEW (None Seen); Urine Protein, UAD 1+ (Negative); Urine Specific Gravity 1.025 (1.001-1.035); Urine Urobilinogen Normal (Negative); Urine WBC 7 /hpf (0 - 5); Urine pH 5.5 (5.0-9.0)
[2024-05-27 22:30] LABS: Amphetamine Screen, Urine Neg (NEGATIVE); Barbiturate Scree,Urine Neg (NEGATIVE); Benzodiazephine Screen, Urine Neg (NEGATIVE); Cannabinoid Screen, Urine Neg (NEGATIVE); Cocaine Screen, Urine Neg (NEGATIVE); Opiate Scree,Urine Neg (NEGATIVE); Phencyclidine Screen, Urine Neg (NEGATIVE)
[2024-05-27] MEDS: LACTATED RINGER'S 1,000 ML IV SCH (22:59)
[2024-05-28] MEDS: WITCH HAZEL-GLYCERIN PAD TOP PRN (00:22)
[2024-05-28] MEDS: DERMOPLAST 60ML BOTTLE TOP PRN (00:22)
[2024-05-28] MEDS: PHISODERM TOP SOLN 240ML BTL TOP PRN (00:22)
[2024-05-28] MEDS: miSOPROStol 50 MCG per PRE-CUT 1/2 TAB PO PRN (03:13)
[2024-05-28] MEDS ORDERED: ACCU-CHEK COMFORT CURVE STRIP VI SCH (04:30)
--- NOTE | 2024-05-28 07:05 | DVHPN2 ---
Chief Complaints Patient reports: No new complaints Nursing reports: No new complaints Objective Medications Current Medications Medications (Trade) Dose Ordered Sig/Belle Route PRN Reason Start Time Stop Time Status Last Admin Benzocaine (Dermoplast) 1 applic PRN PRN TOP PERINEAL AREA DISCOMFORT 05/27/24 19:45 05/28/24 00:22 Diagnostic Test (Pha) (Accu-Chek Comfort Curve T) 1 strip Q4HR 05/28/24 04:30 Lactated Ringer's 1,000 ml @ 125 mls/hr Q8H IV 05/27/24 19:45 05/28/24 00:57 Lidocaine HCl (Xylocaine) 40 ml ONCE PRN IJ PERINEAL AREA DISCOMFORT 05/27/24 19:45 Misoprostol (Cytotec) 50 mcg Q4HPRN PRN PO CERVICAL RIPENING 05/27/24 19:45 05/28/24 03:13 Nalbuphine HCl (Nubain) 10 mg Q4HP PRN IV MODERATE PAIN (4-6 PAIN SCALE) 05/27/24 19:45 Sodium Lauryl Sulfate (Phisoderm) 240 ml PRN PRN TOP PERINEAL AREA DISCOMFORT 05/27/24 19:45 05/28/24 00:22 Witch Donita (Tucks) 1 pad PRN PRN TOP PERINEAL AREA DISCOMFORT 05/27/24 19:45 05/28/24 00:22 General: Normal Lungs: Normal Cardiovascular: Normal Abdominal: Soft Extremities: Normal Studies Laboratory Tests 05/27/24 20:34 Test 05/27/24 20:34 Range/Units Serum Glucose 123 H 74-106 mg/dL Ass/Plan Assessment iol for gdma2 Plan rec one cytotec pt is endorsed to JENS Aguilar DO May 28, 2024 07:05
[2024-05-28] MEDS ORDERED: ePHEDrine SULFATE 50 MG/ML AMP IV ONE (09:15)
[2024-05-28] MEDS ORDERED: ROPIVACAINE HCL 200 ML EPI ONE (10:16)
[2024-05-28] MEDS: LACT. RINGERS/OXYTOCIN 20UNITS 1,000 ML IV SCH (10:18)
[2024-05-28] MEDS ORDERED: ONDANSETRON ODT 4 MG TAB PO PRN (13:45)
[2024-05-28] MEDS: ACETAMINOPHEN 325 MG TAB PO PRN (13:56)
[2024-05-28] MEDS: LACT. RINGERS/OXYTOCIN 20UNITS 500 ML IV ONE ×2 (14:05→14:06)
--- NOTE | 2024-05-28 14:53 | LDN2 ---
Labor and Delivery Note Date 05/28/24 Age 28 2 Para 2 EDC 05/30/24 EGA 39+ Diagnosis GDMA2 Morbid obesity Term IUP 39+ week Vaginal Delivery: VTX Vacuum Assisted: No Placenta: Spontaneous Sex: Male Weight 8lb5oz Apgars 6,7 and 9 Amniotic Fluid: Clear Anesthesia Epidural Episiotomy: No Repaired with 2nd deg perineal lac repaired with 3-0 chromic EBL 125 mL Labs Laboratory Tests 05/27/24 20:34: Hepatitis B Surface Antigen Negative Blood Bank 05/27/24 20:34: Blood Type B POSITIVE Complications None Comments/Significant Med Janine Patient pushed with delivery of head. Poor pushing effort, no dystocia Body cord noted. Baby with poor crying effort and tone, Apgars 6 and 7, and 9 at 10 min Cord gases obtained, WNL. Placenta delivered spontaneously intact 2nd degree lac repaired Patient doing well. CHARLES DOWNING DO May 28, 2024 14:53
[2024-05-28] MEDS: IBUPROFEN 600 MG TAB PO PRN (16:46)
[2024-05-28 18:40] VITALS: BP 121/66; PULSE 98; RESP 16; TEMP 97.9; O2SAT 98
[2024-05-28] MEDS: DOCUSATE SOD 100 MG CAP PO SCH (21:46)
[2024-05-28 23:00] VITALS: BP 129/75; PULSE 99; RESP 16; TEMP 97.7; O2SAT 100
[2024-05-29 03:00] VITALS: BP 130/69; PULSE 86; RESP 16; TEMP 97.9; O2SAT 100
[2024-05-29] MEDS: LACTATED RINGER'S 1,000 ML IV ONE (06:25)
--- NOTE | 2024-05-29 06:34 | DVHPN2 ---
Progress Note Date Seen: May 29, 2024 Subjective PPD#1 s/p , GDMA2 NO acute complaints. Lochia minimal, NO pain vital signs Vital Sign Date Time Temp Pulse Resp B/P (MAP) Pulse Ox O2 Delivery O2 Flow Rate FiO2 05/29/24 03:00 97.9 86 16 130/69 (89) 100 97.9 05/28/24 19:00 Room Air Total Intake and Output 05/28/24 05/28/24 05/29/24 15:00 23:00 07:00 Output Total 250 ml 300 ml Balance -250 ml -300 ml medications Current Medications Medications Dose Ordered Sig/Belle Route Start Time Stop Time Status Last Admin Dose Admin Lactated Ringer's 1,000 ml @ 125 mls/hr Q8H IV 05/27/24 19:45 05/28/24 09:41 125 MLS/HR Nalbuphine HCl 10 mg Q4HP PRN IV 05/27/24 19:45 Cancel Witch Donita 1 pad PRN PRN TOP 05/27/24 19:45 05/28/24 00:22 1 PAD Sodium Lauryl Sulfate 240 ml PRN PRN TOP 05/27/24 19:45 05/28/24 00:22 240 ML Benzocaine 1 applic PRN PRN TOP 05/27/24 19:45 05/28/24 00:22 1 APPLIC Lidocaine HCl 40 ml ONCE PRN IJ 05/27/24 19:45 Cancel Diagnostic Test (Pha) 1 strip Q4HR 05/28/24 04:30 Ibuprofen 600 mg Q6HP PRN PO 05/28/24 13:45 05/29/24 02:07 600 MG Acetaminophen 650 mg Q4HP PRN PO 05/28/24 13:45 05/28/24 21:46 650 MG Ondansetron HCl 4 mg Q4HPRN PRN PO 05/28/24 13:45 Docusate Sodium 200 mg HS PO 05/28/24 22:00 05/28/24 21:46 200 MG laboratory and microbiology Laboratory Tests 05/27/24 20:34 Test 05/27/24 20:34 Range/Units Serum Glucose 123 H 74-106 mg/dL Objective O: AFVSS Chest: heart and lung sounds normal. Abd soft, non-tender, fundus firm, BS, no rebound or guarding, Ext Neg Homans, Non-tender, edema Lochia - minimal Labs Reviewed Assessment/Plan [id number] Ab1 s/p GDMA2, s/p induction of labor w/ GBS neg Plan: Continue supportive care Accuchecks only D/C planning after 24h delivery Plan discussed with: Patient CHARLES DOWNING May 29, 2024 06:34
[2024-05-29 07:00] VITALS: BP 139/84; PULSE 102; RESP 18; TEMP 98; O2SAT 100
[2024-05-29] MEDS ORDERED: IBU600T PO (07:01)
--- NOTE | 2024-05-29 07:02 | DVHDS2 ---
Physician Discharge Progress N Final Diagnosis: GDMA2, induction of labor with Operations or Procedures: Operations or Procedures INduction of labor with Commentary: Commentary Uncomplicated labor and delivery and normal PP course Condition on Discharge: Stable Disposition: Home Discharge Instructions: Diet: Regular Activity: Light activity Activity comment: Pelvic rest x 6 weeks Follow Up/Referral: [address] Downing office Medications: Ibuprofen PRN pain Follow Up Care: Discharge Statement: "Patient was advised to return to the ER or call 911 if any headaches, dizziness, shortness of breath, chest pain, abdominal pain, bleeding, fevers, or worsening of medical condition. Patient was counseled about treatment plan, medications, possible side effects, patientverbalized understanding. All questions were answered to the best of my ability. This discharge took greater then 30 minutes in planning, reviewing documentation, counseling the patient, and discussing with other team members." CHARLES DOWNING DO May 29, 2024 07:02
[2024-05-29 17:06] LABS: Chlamydia Trachomatis, NAA Negative (Negative); Neisseria gonorrhoeae, NAA Negative (Negative)
[2024-05-31 10:06] LABS: Treponema Pallidum Ab LC Non Reactive (Non Reactive)
== END 2024-05-29 09:25 | disposition home or self-care (01) | DRG 807 ==
LOC: LDRP 19:10
PROVIDERS: ADMIT Obstetrics & Gynecology; ATTEND Obstetrics & Gynecology
PROC: 10E0XZZ Delivery of Products of Conception, External Approach (ICD-10-PCS; principal; 2024-05-28)
PROC: 0KQM0ZZ Repair Perineum Muscle, Open Approach (ICD-10-PCS; 2024-05-28)
PROC: 3E0DXGC Introduction of Other Therapeutic Substance into Mouth and Pharynx, External Approach (ICD-10-PCS; 2024-05-28)
PROC: 3E0R3BZ Introduction of Anesthetic Agent into Spinal Canal, Percutaneous Approach (ICD-10-PCS; 2024-05-28)
PROC: 00HU33Z Insertion of Infusion Device into Spinal Canal, Percutaneous Approach (ICD-10-PCS; 2024-05-28)
DX: O24.420 Gestational diabetes mellitus in childbirth, diet controlled (principal); Z37.0 Single live birth; O99.214 Obesity complicating childbirth; Z3A.39 39 weeks gestation of pregnancy; O70.1 Second degree perineal laceration during delivery; E66.01 Morbid (severe) obesity due to excess calories
CPT/HCPCS: 36415; 59025; 59409; 62282; 80053; 80307; 81001; 81002; 82948; 82962; 85025; 85610; 85730; 86592; 86780; 86850; 86900; 86901; 87340; 94760; 94762; 96360; 96361; 96366; G0378; J2590